=== PATIENT | male | born 1990 | race American Indian/Alaskan Native ===

== ENCOUNTER 2019-09-01 13:47 | Emergency (ER) | payer OTHER ==
[2019-09-01 14:05] VITALS: BP 110/74
[2019-09-01] MEDS ORDERED: IBUPROFEN 600 MG TAB PO ONE (15:34)
[2019-09-01] MEDS ORDERED: ACETAMINOPHEN 325 MG TAB PO ONE (15:34)
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
== END 2019-09-01 19:41 | disposition home or self-care (01) ==
LOC: ED 13:47
DX: S39.012A Strain of muscle, fascia and tendon of lower back, initial encounter (principal); J45.909 Unspecified asthma, uncomplicated; Z79.899 Other long term (current) drug therapy; V49.49XA Driver injured in collision with other motor vehicles in traffic accident, initial encounter; Y93.89 Activity, other specified; Y92.410 Unspecified street and highway as the place of occurrence of the external cause; Y99.8 Other external cause status